=== PATIENT | male | born 1960 | race Caucasian/White ===

== ENCOUNTER 2019-12-07 05:46 | Inpatient (IN) | payer OTHER, MEDICARE ==
[2019-11-28 11:25] VITALS: BMI 31.3
[2019-12-07] MEDS ORDERED: CELECOXIB 200 MG CAPSULE PO ONE (06:52)
[2019-12-07] MEDS ORDERED: oxyCODONE HCL 10 MG SUSTAINED ACTING TABLET PO ONE ×2 (06:53→12:30)
[2019-12-07] MEDS ORDERED: CEFAZOLIN 2 GM in DEXTROSE 5%-WATER - 50 ML IVPB ONE (06:53)
[2019-12-07] MEDS ORDERED: PANTOPRAZOLE 40 MG TABLET PO ONE (06:59)
[2019-12-07] MEDS ORDERED: MIDAZOLAM HCL 2 MG/2 ML SINGLE DOSE VIAL ONE ×2 (07:00→09:56)
[2019-12-07] MEDS ORDERED: ROPIVACAINE HCL 0.5% 30ML VIAL ONE (07:00)
[2019-12-07] MEDS ORDERED: VANCOMYCIN 1,000 MG VIAL (RESTRICTED TO ID ONLY) ONE (07:22)
[2019-12-07] MEDS ORDERED: TRANEXAMIC ACID 1000 MG/10 ML VIAL ONE (07:22)
[2019-12-07] MEDS ORDERED: ceFAZolin SODIUM 1 GM VIAL ONE (07:22)
--- NOTE | 2019-12-07 07:52 | HP ---
Admitting History and Physical - Admission Chief Complaint: Left hip osteoarthritis x years History of Present Illness: 59 year old male presents today in regard to their left hip. Longstanding history of left hip osteoarthritis. Patient complains of pain, limited ROM, difficulty ambulating and difficulty completing activities of daily living. Patient has failed conservative treatment options including PO medications, injections, exercise programs and activity modification. Diagnostic testing reveals severe osteoarthritis of the left hip joint. At this point, patient would like to proceed with surgical intervention; a left total hip arthroplasty, MAKOplasty. 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 Psoriasis Hearing loss Neuropathy - diabetic - Past Surgical History Additional Past Surgical History: Hernia Cervical prasanna [id number] Left shoulder rotator cuff Left elbow ulnar nerve transposition Left wrist Ulnar arterectomy Cyst removal right kidney egd 09/10/16: Esophageal erythema (path - mild nonspecific changes consistent with gerd), Gastric erythema (path - mild gastritis, positive for h. pylori). No celiac. colonoscopy 09/10/16: good prep ; One polyp (adenoma) removed from transverse colon, One nonbleeding vascular angiectasia in ascending colon, Internal hemorrhoids (grade II). Repeat colonoscopy for surveillance in 5 years capsule endoscopy 10/27/16: unremarkable - Smoking History Smoking history: Never smoked Have you smoked in the past 12 months: No Home Medications - Allergies Allergies/Adverse Reactions: Allergies Allergy/AdvReac Type Severity Reaction Status Date / Time No Known Drug Allergies Allergy Verified 12/07/19 06:59 - Home Medications Home Medications: Ambulatory Orders Celecoxib [Celebrex -] 200 mg PO BID 08/04/19 Finasteride 5 mg PO HS 08/04/19 Gabapentin 800 mg PO TID 08/04/19 Glimepiride 4 mg PO BID 08/04/19 Metformin HCl [Glucophage] 1,000 mg PO HS 08/04/19 Tamsulosin HCl 0.4 mg PO HS 08/04/19 cloNIDine HCL [Catapres -] 0.1 mg PO BID 08/04/19 Morphine Sulfate 15 mg PO TID PRN 11/28/19 Valsartan/Hydrochlorothiazide [Valsartan-Hctz 160-25 mg Tab] 1 each PO DAILY 11/28/19 Review of Systems - Review of Systems Musculoskeletal: reports: Decreased ROM (left hip), Joint Pain (left hip) Physical Examination Vital Signs: Vital Signs Temperature 98.9 F 12/07/19 07:00 Pulse Rate 84 12/07/19 07:00 Respiratory Rate 16 12/07/19 07:00 Blood Pressure 115/74 12/07/19 07:00 O2 Sat by Pulse Oximetry (%) 98 12/07/19 07:18 Constitutional: Yes: Well Nourished Eyes: Yes: Conjunctiva Clear HENT: Yes: Atraumatic Neck: Yes: Supple Cardiovascular: Yes: Regular Rate and Rhythm Respiratory: Yes: Regular Gastrointestinal: Yes: Soft ...Rectal Exam: Yes: Deferred Musculoskeletal: Yes: Joint Stiffness (Left hip), Other (Limited ROM) Edema: RLE: Trace Assessment/Plan 59 year old male presents today in regard to their left hip. Longstanding history of left hip osteoarthritis. Patient complains of pain, limited ROM, difficulty ambulating and difficulty completing activities of daily living. Patient has failed conservative treatment options including PO medications, injections, exercise programs and activity modification. Diagnostic testing reveals severe osteoarthritis of the left hip joint. At this point, patient would like to proceed with surgical intervention; a left total hip arthroplasty, MAKOplasty. Pros, cons, risks, benefits & alternatives of a left total hip arthroplasty, MAKOplasty was discussed with the patient at length. Patient confirms his understanding and consents to proceed with a left total hip arthroplasty - MAKOplasty.
[2019-12-07] MEDS ORDERED: EPHEDRINE SULFATE/0.9% NACL/PF 50 MG/10 ML SYRINGE NR ONE (08:38)
[2019-12-07] MEDS ORDERED: PROPOFOL 20 ML ONE ×4 (09:00→10:22)
[2019-12-07] MEDS ORDERED: TRANEXAMIC ACID 1000 MG/10 ML VIAL IVPUSH ONE (10:35)
[2019-12-07] MEDS ORDERED: VANCOMYCIN 1,000 MG VIAL (RESTRICTED TO ID ONLY) IVPB ONE (10:38)
[2019-12-07] MEDS ORDERED: ONDANSETRON 4 MG/2 ML VIAL IVPUSH PRN ×2 (11:32→12:22)
--- NOTE | 2019-12-07 11:33 | SURG ---
Surgery Ware Dresser Note Ware Dresser: Arleth Recio PA-C Date of Service: 12/07/19 Diagnosis: Left Hip OA Procedure: Rigoberto assisted Left total hip arthroplasty I was present for the entirety of the operative procedure. For further detail, please refer to operative report. Visit type - Case Type Case Type: Scheduled - Emergency Emergency Visit: No - New patient This patient is new to me today: Yes Date on this admission: 12/07/19
[2019-12-07] MEDS ORDERED: ACETAMINOPHEN INJECTION 100 ML IVPB ONE (11:38)
[2019-12-07] MEDS ORDERED: KETOROLAC TROMETHAMINE 30 MG/1 ML VIAL ONE (11:38)
[2019-12-07] MEDS ORDERED: traMADol HCL 50 MG TABLET ONE (11:38)
[2019-12-07] MEDS ORDERED: HYDROmorphone HCL 0.5 MG/0.5 ML SYRINGE ONE ×4 (11:43→12:22)
[2019-12-07] MEDS ORDERED: LACTATED RINGERS SOLUTION 1,000 ML IV SCH ×2 (11:45→12:30)
[2019-12-07] MEDS: HYDROmorphone HCL CARPU-JECT 1 MG/1 ML DISP.SYRIN IVPUSH PRN ×4 (11:55→12:30)
[2019-12-07 12:04] LABS: HEMATOCRIT 31.8 % (35.4-49); MCH 30.3 pg (25.7-33.7); MCHC 34.7 g/dl (32.0-35.9); MEAN CELL VOLUME 87.3 fl (80-96); MEAN PLT VOLUME 8.4 fl (7.5-11.1); PLATELET COUNT 81 K/MM3 (134-434); RBC 3.64 M/mm3 (4.00-5.60); RDW 13.8 % (11.9-15.9)
[2019-12-07] MEDS ORDERED: ACETAMINOPHEN 1000 MG/100 ML VIAL (NON FORMULARY) IVPB ONE (12:11)
[2019-12-07] MEDS ORDERED: KETOROLAC TROMETHAMINE 30 MG/1 ML VIAL IVPUSH ONE (12:11)
[2019-12-07] MEDS ORDERED: oxyCODONE HCL 10 MG SUSTAINED ACTING TABLET ONE (12:13)
[2019-12-07] MEDS ORDERED: oxyCODONE HCL 5 MG TABLET PO PRN ×2 (12:18→12:19)
[2019-12-07] MEDS ORDERED: MAGNESIUM HYDROX 2400MG/30ML ORAL SUSPENSION 30 ML CUP PO PRN (12:22)
[2019-12-07] MEDS ORDERED: MAG HYDROX/AL HYDROX/SIMETH 30 ML UNIT-DOSE CUP PO PRN (12:22)
--- NOTE | 2019-12-07 12:34 | OP ---
Operative Note - Note: Operative Date: 12/07/19 Pre-Operative Diagnosis: Left hip OA Operation: left DREW JORGE Post-Operative Diagnosis: Same as Pre-op Surgeon: Neil Lloyd Neuroscientist: Arleth Recio Anesthesia: Spinal Estimated Blood Loss (mls): 200
[2019-12-07] MEDS: LACTATED RINGERS SOLUTION 1,000 ML IV SCH (12:38)
[2019-12-07] MEDS ORDERED: PT OWN MED DRAWER 7, Y5N ONE (16:30)
[2019-12-07] MEDS: oxyCODONE HCL 5 MG TABLET PO PRN (16:35)
[2019-12-07 16:56] LABS: ALBUMIN 3.3 g/dl (3.4-5.0); BILIRUBIN,TOTAL 0.6 mg/dl (0.2-1); CALCIUM 8.7 mg/dl (8.5-10); CREATININE 2.3 mg/dl (0.55-1.3); POTASSIUM 4.9 mmol/L (3.5-5.1); TOT PROT 5.8 g/dl (6.4-8.2)
[2019-12-07] MEDS: INSULIN (NOVOLOG) ASPART 100 UNITS/ML 10ML VIAL SQ SCH ×2 (17:09→21:14)
--- NOTE | 2019-12-07 17:16 | SPEC ---
DATE OF OPERATION: 12/07/2019 PREOPERATIVE DIAGNOSIS: Left hip osteoarthritis. POSTOPERATIVE DIAGNOSIS: Left hip osteoarthritis. PROCEDURE: Left total hip replacement with RIGOBERTO plasty robotic navigation. ATTENDING: Ash Muñoz MD SPA COORDINATOR: Arleth Recio PA-C ANESTHESIA: Spinal plus sedation. ESTIMATED BLOOD LOSS: 200 mL. COMPLICATIONS: None. DISPOSITION: The patient was transferred to the PACU in stable condition. IMPLANT USED: [place] Accolade II, size 7 femoral component, Torri Trident II 56-mm acetabular component, with 25 and 25-mm acetabular screws, MDM bipolar head ball and liner with inner ceramic +4-mm offset head ball. INDICATIONS: This is a 59-year-old male who presented to the office complaining of severe left hip pain. He was seen and examined by Dr. Muñoz and diagnosed with severe left hip osteoarthritis. The patient was initially treated nonoperatively with injections and medications and physical therapy but continued to have severe pain and ambulatory dysfunction. He was therefore indicated for a left total hip replacement. The risks, benefits, and alternatives to the procedure were explained to the patient in great detail, and he elected to proceed with the surgery. DESCRIPTION OF PROCEDURE: On the day of surgery, the patient was taken to the operating room and placed on the OR table. Spinal anesthesia was administered by the anesthesiologist. The patient was then positioned in the lateral decubitus position on the table and all bony prominences were padded. An axillary roll was placed. The operative hip was then prepped and draped in the usual sterile fashion and intravenous antibiotics were given for infection prophylaxis. A surgical time-out was then performed with the team, and the patients identity, procedure, side, availability of implants, and the administration of antibiotics were confirmed. An approximately 15-cm longitudinal incision was made through the skin centered on the greater trochanter of the hip. This dissection was carried down through the subcutaneous tissues to the deep fascia. This fascia was then incised and a Cobra was placed around the inferior femoral neck. Electrocautery was used to reflect the anterior 40% of the gluteus medius and minimus starting at the musculotendinous junction and leaving a cuff for closure. This was reflected to reveal the capsule of the hip joint. An anterior capsulectomy was performed and the femoral head and neck were visualized. Grade 4 changes were noted diffusely throughout the joint. At this point, three small stab incisions were made superior to the main incision along the iliac crest. Three self-drilling Steinmann pins were then placed and the TOPSEC pelvic array was attached. Reference points on the limb were then entered into the robotic device and the limb length deficiency, offset, and femoral neck resection level were then calculated by the software. The hip was then dislocated with traction and external rotation. An oscillating saw was used to make the femoral neck cut at the level previously templated, and the femoral head was removed. Attention was then turned to the acetabulum. Retractors were then placed around the acetabulum and the labrum was removed. An acetabular checkpoint pin and the TOPSEC software were used to register the contours of the acetabulum. The acetabulum was then reamed in a single stage to the preoperatively templated size using the Rigoberto robotic arm. The appropriately sized cup was then impacted and had solid fixation as well as the preset inclination and version of 40 and 20 degrees, respectively. A polyethylene liner was then placed in the cup. Attention was then turned back to the femur, which was externally rotated for improved visualization. A femoral neck elevator was used to present the femoral neck cut, a box osteotome was used to enter the femoral canal, and a canal finder was used to go down the femoral shaft. The Rigoberto broaches were used sequentially until the optimal scratch fit was achieved. This correlated with the preoperatively templated size. From here, several different offset head and neck configurations were tested until excellent stability and length were obtained. These measurements were quantified using the TOPSEC software. All trial components were then removed, the femur was copiously irrigated, and the final components were placed. Leg length and stability were checked again and found to be excellent. Irrigation was performed again. Wound closure was started by repairing the abductor muscles with a no. 2 FiberWire stitch in a Krackow configuration passed through bone tunnels in the greater trochanter and tied over a bony bridge. This repair was then reinforced with a 0 V-Loc 180 barbed suture. Next, no. 1 Polysorb and 0 V-Loc 180 were used to close the fascia. The deep subcutaneous tissue was closed with no. 1 Polysorb sutures, and 2-0 Polysorb was used for the superficial subcutaneous tissue. The skin was closed using both 3-0 V-Loc 90 suture in a running subcuticular fashion and SwiftSet skin adhesive. The Rigoberto array and pins were removed from the iliac crest and the stab incision sites were irrigated and closed with 4-0 Polysorb sutures and SwiftSet skin adhesive. Once this was completed, a sterile dressing was applied. The patient was then awakened and taken to the PACU in stable condition. ADDENDUM: After final implants were placed, a 3-minute dilute Betadine soak was performed. Following this, the wound was thoroughly irrigated with normal saline and wound closure was begun. ASH MUÑOZ M.D. [id number]
[2019-12-07] MEDS: CEFAZOLIN 2 GM/D5W 2 GM/50 ML ML IVPB SCH (17:25)
[2019-12-07] MEDS: GLIMEPIRIDE 4 MG TABLET PO SCH (18:12)
[2019-12-07] MEDS: ACETAMINOPHEN 325 MG TABLET (FP) PO SCH (18:13)
[2019-12-07] MEDS ORDERED: DEXAMETHASONE SOD PHOSPHATE 10 MG/1 ML VIAL IVPB ONE (20:00)
[2019-12-07] MEDS: oxyCODONE HCL 10 MG SUSTAINED ACTING TABLET PO SCH (21:12)
[2019-12-07] MEDS: ASCORBIC ACID 500 MG TABLET (FP) PO SCH (21:13)
[2019-12-07] MEDS: metFORMIN HCL 500 MG TABLET (FP) PO SCH (21:13)
[2019-12-07] MEDS: SENNOSIDES/DOCUSATE COMBO (SENNA PLUS) TABLET (UD) PO SCH (21:13)
[2019-12-07] MEDS: FINASTERIDE 5 MG TABLET (FP) PO SCH (21:13)
[2019-12-07] MEDS: TAMSULOSIN HCL 0.4 MG CAP PO SCH (21:13)
[2019-12-07] MEDS: GABAPENTIN 400 MG CAPSULE PO SCH (21:13)
[2019-12-07] MEDS ORDERED: PATIENT'S OWN MEDICATION (NON-FORMULARY) (Metformin Hcl [Glucophage] 1,000 MG) PO SCH (22:00)
[2019-12-07] MEDS: cloNIDine HCL 0.1 MG TABLET PO SCH (22:00)
[2019-12-07] MEDS ORDERED: GABAPENTIN 300 MG CAPSULE PO SCH (22:00)
[2019-12-08] MEDS: ACETAMINOPHEN 325 MG TABLET (FP) PO SCH ×4 (00:36→18:46)
[2019-12-08] MEDS: CEFAZOLIN 2 GM/D5W 2 GM/50 ML ML IVPB SCH (01:23)
[2019-12-08] MEDS: GABAPENTIN 400 MG CAPSULE PO SCH ×3 (06:14→21:33)
[2019-12-08] MEDS: INSULIN (NOVOLOG) ASPART 100 UNITS/ML 10ML VIAL SQ SCH ×4 (06:15→21:35)
[2019-12-08] MEDS: oxyCODONE HCL 5 MG TABLET PO PRN ×3 (06:16→18:53)
[2019-12-08 08:07] LABS: CALCIUM 8.9 mg/dl (8.5-10); CREATININE 2.4 mg/dl (0.55-1.3); POTASSIUM 5.6 mmol/L (3.5-5.1)
[2019-12-08 08:13] LABS: HEMATOCRIT 30.4 % (35.4-49); HEMOGLOBIN 10.6 GM/dl (11.7-16.9); MCH 30.4 pg (25.7-33.7); MCHC 34.9 g/dl (32.0-35.9); PLATELET COUNT 58 K/MM3 (134-434); RBC 3.49 M/mm3 (4.00-5.60); RDW 13.5 % (11.9-15.9); WHITE BLOOD COUNT 3.9 K/mm3 (4.0-10.8)
[2019-12-08] MEDS: MULTIVITAMINS (DAILY MVI) TABLET (FP) PO SCH (09:09)
[2019-12-08] MEDS: HYDROCHLOROTHIAZIDE 25 MG TABLET (FP) PO SCH (09:09)
[2019-12-08] MEDS: APIXABAN 2.5 MG TABLET PO SCH ×2 (09:09→21:33)
[2019-12-08] MEDS: ASCORBIC ACID 500 MG TABLET (FP) PO SCH ×2 (09:09→21:33)
[2019-12-08] MEDS: GLIMEPIRIDE 2 MG TABLET PO SCH ×2 (09:10→16:48)
[2019-12-08] MEDS: VALSARTAN 160 MG TABLET (UD) PO SCH (09:10)
[2019-12-08] MEDS: PANTOPRAZOLE 40 MG TABLET PO SCH (09:10)
[2019-12-08] MEDS: SENNOSIDES/DOCUSATE COMBO (SENNA PLUS) TABLET (UD) PO SCH ×2 (09:10→21:34)
[2019-12-08] MEDS: cloNIDine HCL 0.1 MG TABLET PO SCH ×2 (09:10→21:31)
[2019-12-08] MEDS: oxyCODONE HCL 10 MG SUSTAINED ACTING TABLET PO SCH ×2 (09:11→22:49)
[2019-12-08] MEDS: GLIMEPIRIDE 4 MG TABLET PO SCH (09:12)
[2019-12-08] MEDS ORDERED: PATIENT'S OWN MEDICATION (NON-FORMULARY) (Valsartan/Hydrochlorothiazide [Valsartan-Hctz 16 PO SCH (10:00)
[2019-12-08] MEDS: LACTATED RINGERS SOLUTION 1,000 ML IV SCH (13:09)
[2019-12-08] MEDS ORDERED: PT OWN MED DRAWER 7, Y5N ONE (13:30)
--- NOTE | 2019-12-08 21:13 | PN ---
Progress Note (short form) - Note Progress Note: Pt seen and examined. C/o pain AVSS Selected Entries 12/08/19 12/08/19 09:06 14:00 Temperature 99.6 F Pulse Rate 87 Respiratory 20 Rate Blood Pressure 120/68 O2 Sat by Pulse 100 Oximetry (%) Oxygen Delivery Room Air Method Laboratory Tests 12/08/19 12/08/19 12/08/19 06:08 07:15 07:15 WBC 3.9 L Hgb 10.6 L Hct 30.4 L Plt Count 58 L D Sodium 133 L Potassium 5.6 H Chloride 100 Carbon Dioxide 21 Anion Gap 12 BUN 53.0 H Creatinine 2.4 H Est GFR (CKD-EPI)AfAm 33.45 Est GFR (CKD-EPI)NonAf 28.86 POC Glucometer 222 Random Glucose 243 H Calcium 8.9 Gen: NAD LLE: c/d/i, NVID A/P POD#1 s/p L JORGE PT/OOB - WBAT LLE IVF overnight for chronic renal failure - 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
[2019-12-08] MEDS ORDERED: LACTATED RINGERS SOLUTION 1,000 ML IV SCH (21:15)
--- NOTE | 2019-12-08 21:15 | DS ---
Physical Examination Vital Signs: Vital Signs Temperature 99.6 F 12/08/19 14:00 Pulse Rate 87 12/08/19 14:00 Respiratory Rate 20 12/08/19 14:00 Blood Pressure 120/68 12/08/19 14:00 O2 Sat by Pulse Oximetry (%) 100 12/08/19 09:06 Labs: CBC, BMP 12/08/19 07:15 12/08/19 07:15 Discharge Summary Problems reviewed: Yes Reason For Visit: LEFT HIP OSTEOARTHRITIS Current Active Problems Osteoarthritis of left hip (Acute) Procedures: Principal: left DREW JORGE Hospital Course: Admitted for elective surgery. Procedure performed without complications. Pt received postoperative antibiotic prophylaxis and DVT ppx. Ambulated with physical therapy. Stable for discharge home with outpatient followup. Condition: Stable - Instructions Diet, Activity, Other Instructions: Dr Lloyd - Hip Replacement Instructions Keep the Aquacel dressing on until removed by Dr. Lloyd in 2 weeks - it is antibacterial and waterproof and you can shower with it on. Call the office for a follow-up appointment with Dr. Lloyd in 2 weeks. [phone] Take ELIQUIS 2.5mg twice daily for 35 days to prevent blood clots in your legs. Take one Pantoprazole 40mg daily for 6 weeks to protect against heartburn and ulcers. Take Cephalexin (antibiotic) 3x/day for 10 days to help prevent skin infection. Take a multivitamin, stool softener and extra Vitamin C supplement daily. For pain: RESUME YOUR BASELINE HOME MORPHINE DOSE. ON TOP OF THAT: *Mild pain (1-3/10): Take 1 Tramadol tablet every 4 hours as needed. Moderate pain (4-6/10): Take 1 Tramadol tablet and 1 Percocet tablet every 4 hours as needed. Severe pain (7-10/10): Take 1 Tramadol tablet and 2 Percocet tablets every 4 hours as needed. Activity: You can put as much weight on the operative leg as you want. For the first 6 weeks, all you need to do is walk around the house, go up/down stairs, and sit down/get up. After 6 weeks when everything is healed (and bone has grown into the implant) you will be sent for more intensive outpatient physical therapy. Always use a walker or cane for balance and to prevent falls. Expect to see swelling / bruising from the operative site all the way down to your toes. Wear the Compression stocking on the operative side during the day to minimize how much swelling there is in your foot/ankle. Don't wear the stocking at night. You don't have to wear the stocking on the other side. MAKE AN APPOINTMENT WITH YOUR PAIN MANAGEMENT DOCTOR NOW TO DISCUSS MEDICATION CHANGES IF YOUR PAIN IS TOO SEVERE WHEN YOU ARE HOME. Disposition: [facility]/HOME HEALTH CARE - Home Medications Comprehensive Discharge Medication List: Ambulatory Orders Finasteride 5 mg PO HS 08/04/19 Gabapentin 800 mg PO TID 08/04/19 Glimepiride 4 mg PO BID 08/04/19 Metformin HCl [Glucophage] 1,000 mg PO HS 08/04/19 Tamsulosin HCl 0.4 mg PO HS 08/04/19 cloNIDine HCL [Catapres -] 0.1 mg PO BID 08/04/19 Morphine Sulfate 15 mg PO TID PRN 11/28/19 Valsartan/Hydrochlorothiazide [Valsartan-Hctz 160-25 mg Tab] 1 each PO DAILY 11/28/19 Apixaban [Eliquis -] 2.5 mg PO BID #68 tablet 12/07/19 Ascorbic Acid [Vitamin C -] 500 mg PO BID tablet 12/07/19 Cephalexin Monohydrate [Keflex -] 500 mg PO TID #30 capsule 12/07/19 Multivitamins [Multivit ([facility] Formulary)] 1 tab PO DAILY tab 12/07/19 Oxycodone HCl/Acetaminophen [Percocet 5-325 mg Tablet] 1 - 2 tab PO Q4H PRN #60 tablet MDD 10 12/07/19 Pantoprazole Sodium [Protonix -] 40 mg PO DAILY #40 tablet.ec 12/07/19 Sennosides/Docusate Sodium [Pericolace -] 2 tablet PO BID tablet 12/07/19 traMADol HCL [Ultram -] 50 mg PO Q4H PRN #42 tablet MDD 6 12/07/19
[2019-12-08] MEDS ORDERED: morphine SO4 SUSTAINED ACTING 15 MG TABLET.SA PO ONE (21:17)
[2019-12-08] MEDS: FINASTERIDE 5 MG TABLET (FP) PO SCH (21:31)
[2019-12-08] MEDS: TAMSULOSIN HCL 0.4 MG CAP PO SCH (21:33)
[2019-12-08] MEDS: metFORMIN HCL 500 MG TABLET (FP) PO SCH (21:34)
[2019-12-09] MEDS: ACETAMINOPHEN 325 MG TABLET (FP) PO SCH ×3 (01:00→12:27)
[2019-12-09] MEDS: oxyCODONE HCL 5 MG TABLET PO PRN ×2 (04:18→08:47)
[2019-12-09] MEDS: GABAPENTIN 400 MG CAPSULE PO SCH (05:41)
[2019-12-09] MEDS: INSULIN (NOVOLOG) ASPART 100 UNITS/ML 10ML VIAL SQ SCH (06:48)
[2019-12-09] MEDS: GLIMEPIRIDE 2 MG TABLET PO SCH (06:50)
[2019-12-09 07:10] VITALS: BP 120/63; PULSE 76; TEMP 98.9
[2019-12-09 08:26] LABS: HEMATOCRIT 26.9 % (35.4-49); HEMOGLOBIN 9.4 GM/dl (11.7-16.9); MCH 30.8 pg (25.7-33.7); MCHC 34.8 g/dl (32.0-35.9); MEAN CELL VOLUME 88.4 fl (80-96); MEAN PLT VOLUME 8.6 fl (7.5-11.1); PLATELET COUNT 50 K/MM3 (134-434); RBC 3.04 M/mm3 (4.00-5.60); RDW 13.5 % (11.9-15.9); WHITE BLOOD COUNT 3.5 K/mm3 (4.0-10.8)
[2019-12-09 08:29] LABS: CALCIUM 9.1 mg/dl (8.5-10); POTASSIUM 5.1 mmol/L (3.5-5.1)
[2019-12-09] MEDS: oxyCODONE HCL 10 MG SUSTAINED ACTING TABLET PO SCH (09:44)
[2019-12-09] MEDS: PANTOPRAZOLE 40 MG TABLET PO SCH (09:45)
[2019-12-09] MEDS: VALSARTAN 160 MG TABLET (UD) PO SCH (09:45)
[2019-12-09] MEDS: HYDROCHLOROTHIAZIDE 25 MG TABLET (FP) PO SCH (09:45)
[2019-12-09] MEDS: ASCORBIC ACID 500 MG TABLET (FP) PO SCH (09:45)
[2019-12-09] MEDS: APIXABAN 2.5 MG TABLET PO SCH (09:45)
[2019-12-09] MEDS: cloNIDine HCL 0.1 MG TABLET PO SCH (09:45)
[2019-12-09] MEDS: MULTIVITAMINS (DAILY MVI) TABLET (FP) PO SCH (09:45)
[2019-12-09] MEDS: SENNOSIDES/DOCUSATE COMBO (SENNA PLUS) TABLET (UD) PO SCH (09:45)
--- NOTE | 2019-12-11 14:54 | PATH ---
Surgical Pathology Report Patient Name: BREANNA GARCIA Med. Rec. #: [id number] /Age/Gender: 1960 (Age: 59) / M Account: [id number] Location: [facility] MED-SURG Taken: 12/07/2019 Received: 12/07/2019 Reported: 12/11/2019 Physicians: Neil Lloyd M.D. Specimen(s) Received LEFT FEMORAL HEAD Clinical History Left hip osteoarthritis Final Diagnosis FEMORAL HEAD, LEFT, TOTAL HIP REPLACEMENT: DEGENERATIVE JOINT DISEASE. Electronically Signed Arleth Sneed M.D. Gross Description Received in formalin, labeled "left femoral head," is a 4.7 x 4.7 x 4.2 cm. femoral head with a 0.5 cm length portion of femoral neck attached. The margin of resection is smooth. There are 2 areas of eburnation present measuring 1.3 and 3.3 cm in greatest dimension. The remaining articular surface is garcia-yellow and focally lifting away from the underlying bone. The underlying trabecular bone is yellow and hard. A manufacturers representative section is submitted in one cassette, following decalcification. 12/08/2019 [facility]12/08/2019
== END 2019-12-09 13:00 | disposition home health service (06) | DRG 470 ==
LOC: FM/S 05:46
PROVIDERS: ADMIT Student in an Organized Health Care Education/Training Program; ATTEND Student in an Organized Health Care Education/Training Program
PROC: 0SRB0JZ Replacement of Left Hip Joint with Synthetic Substitute, Open Approach (ICD-10-PCS; principal; 2019-12-07 09:05)
DX: M16.12 Unilateral primary osteoarthritis, left hip (principal); E11.40 Type 2 diabetes mellitus with diabetic neuropathy, unspecified; H54.8 Legal blindness, as defined in USA; D69.6 Thrombocytopenia, unspecified; L40.9 Psoriasis, unspecified; Z79.84 Long term (current) use of oral hypoglycemic drugs; N18.9 Chronic kidney disease, unspecified
CPT/HCPCS: 36415; 73502-TC-LT-FY; 80048; 80053; 82962; 85027; 88305-TC; 88311-TC; 94760; 97010-GP; 97116-GP; 97163-GP; J0131; J0735; J1100